=== PATIENT | male | born 1970 | race American Indian/Alaskan Native ===

== ENCOUNTER 2022-01-20 15:04 | Emergency (ER) | payer OTHER ==
[2022-01-20 18:01] VITALS: BP 151/78
[2022-01-20 23:47] LABS: Basophils % (Auto) 0.7 % (0.0-1.8); Eosinophils # (Auto) 0.2 K/mm3 (0.0-0.4); Eosinophils % (Auto) 3.7 % (0.0-4.3); Hematocrit 41.8 % (35.5-45.6); Hemoglobin 14.4 gm/dl (11.8-15.2); Lymphocytes # (Auto) 1.6 K/mm3 (1.2-5.4); Lymphocytes % (Auto) 29.8 % (13.4-35.0); Mean Corpuscular HGB Conc 34 % (32-34); Mean Corpuscular Volume 80 fl (84-94); Monocytes # (Auto) 0.5 K/mm3 (0.0-0.8); Monocytes % (Auto) 8.8 % (0.0-7.3); Platelet Count 217 K/mm3 (140-440); Red Blood Count 5.26 M/mm3 (3.65-5.03); Red Cell Distribution Width 15.3 % (13.2-15.2)
[2022-01-21 00:09] LABS: Alanine Aminotransferase 21 units/L (7-56); Albumin 4.2 g/dL (3.9-5); BUN/Creatinine Ratio 17; Blood Urea Nitrogen 20 mg/dL (9-20); Hemolysis Index 49
--- NOTE | 2022-01-21 01:27 | Cat Scan Report ---
CTA CHEST WITH IV CONTRAST INDICATION: LEFT LATERAL CHEST WALL PAIN, H/O PE. Dyspnea TECHNIQUE: Axial CT images were obtained through the chest after injection of 100 mL Omnipaque 350 IV contrast. 3 plane MIP reconstructions were produced. All CT scans at this location are performed using CT dose reduction for ALARA by means of automated exposure control. COMPARISON: None available. FINDINGS: PULMONARY ARTERIES: No pulmonary emboli. AORTA AND ARTERIES: No acute abnormality. MEDIASTINUM: No mass, lymphadenopathy or other significant abnormality. The heart is normal in size w ithout a pericardial effusion. The trachea and main bronchi are patent and normal in caliber. LUNGS: No suspicious consolidation, nodule or mass. No pneumothorax or pleural effusion. ADDITIONAL FINDINGS: None. UPPER ABDOMEN: No acute findings. BONES: No significant osseous abnormality. IMPRESSION: 1. No CT evidence for pulmonary embolism. 2. No acute findings. Signer Name: Eder Gates MD Signed: 01/21/2022 1:23 AM Workstation Name: [id number]
--- NOTE | 2022-01-21 01:39 | Emergency Department Report ---
ED General Adult HPI - General Chief complaint: Back Pain/Injury Stated complaint: PAIN IN LEFT BACK Source: patient Mode of arrival: Ambulatory Limitations: No Limitations - History of Present Illness Initial comments: Patient is a 51-year-old -[place]ron[place] male with history of PE and who is currently not taking any anticoagulants who presents to the ED with complaint of acute persistent nontraumatic left lateral chest wall and mid posterior thoracic pain for the last 2 days. Patient states that the pain is similar to what he felt when he was diagnosed with pulmonary embolism 8 years ago. Patient states that she just returned from a trip to [facility] about 5 weeks ago. Patient states that the pain is worse with any movement or palpation of the left lateral chest wall or mid posterior thoracic area. Patient denies shortness of breath, diaphoresis, nausea and vomiting, neck pain, traumatic injury, heavy lifting, cough, chest pain, change in vision, headache, numbness and tingling or weakness of upper and lower extremities bilaterally. MD Complaint: Left lateral chest wall and mid posterior thoracic pain -: Sudden, days(s) (2) Location: chest (Left lateral chest wall), back (Left-sided mid posterior thoracic pain) Radiation: non-radiation Severity scale (0 -10): 8 Quality: aching, sharp Consistency: constant Improves with: none Worsens with: movement Associated Symptoms: chest pain (Left lateral chest wall pain). denies: denies other symptoms, confusion, cough, diaphoresis, fever/chills, headaches, malaise, nausea/vomiting, rash, seizure, shortness of breath, syncope, weakness Treatments Prior to Arrival: none - Related Data Previous Rx's Medication Instructions Recorded Last Taken Type Baclofen 20 mg PO Q12H PRN #20 tab 01/21/22 Unknown Rx Naproxen 500 mg PO Q12H PRN #30 tab 01/21/22 Unknown Rx Allergies Allergy/AdvReac Type Severity Reaction Status Date / Time No Known Allergies Allergy Unverified 01/20/22 17:58 ED Review of Systems ROS: Stated complaint: PAIN IN LEFT BACK Other details as noted in HPI Constitutional: denies: chills, fever Eyes: denies: eye pain, eye discharge, vision change ENT: denies: ear pain, throat pain Respiratory: denies: cough, shortness of breath, wheezing Cardiovascular: chest pain (Left lateral chest wall pain). denies: palpitations Endocrine: no symptoms reported Gastrointestinal: denies: abdominal pain, nausea, diarrhea Genitourinary: denies: urgency, dysuria Musculoskeletal: back pain (Left sided mid posterior thoracic pain). denies: joint swelling, arthralgia Skin: denies: rash, lesions Neurological: denies: headache, weakness, paresthesias Psychiatric: denies: anxiety, depression Hematological/Lymphatic: denies: easy bleeding, easy bruising ED Past Medical Hx - Past Medical History Hx Pulmonary Embolism: Yes (8 years ago) - Medications Home Medications: Home Medications Medication Instructions Recorded Confirmed Last Taken Type Baclofen 20 mg PO Q12H PRN #20 tab 01/21/22 Unknown Rx Naproxen 500 mg PO Q12H PRN #30 tab 01/21/22 Unknown Rx ED Physical Exam - General Limitations: No Limitations General appearance: alert, in no apparent distress - Head Head exam: Present: atraumatic, normocephalic, normal inspection - Eye Eye exam: Present: normal appearance, PERRL, EOMI Pupils: Present: normal accommodation - ENT ENT exam: Present: normal exam, normal orophraynx, mucous membranes moist, TM's normal bilaterally, normal external ear exam - Neck Neck exam: Present: normal inspection, full ROM. Absent: tenderness - Respiratory Respiratory exam: Present: normal lung sounds bilaterally, chest wall tenderness (Palpable reproducible left lateral chest wall and mid posterior thoracic tenderness). Absent: respiratory distress, wheezes, rales, rhonchi, accessory muscle use, decreased breath sounds - Cardiovascular Cardiovascular Exam: Present: regular rate, normal rhythm, normal heart sounds. Absent: systolic murmur, diastolic murmur, rubs, gallop - GI/Abdominal GI/Abdominal exam: Present: soft, normal bowel sounds. Absent: tenderness, guarding, rebound, hyperactive bowel sounds, hypoactive bowel sounds, organomegaly - Extremities Exam Extremities exam: Present: normal inspection, full ROM, normal capillary refill. Absent: tenderness - Back Exam Back exam: Present: normal inspection, full ROM, tenderness (Palpable left sided mid posterior thoracic tenderness), muscle spasm, paraspinal tenderness. Absent: CVA tenderness (R), CVA tenderness (L), vertebral tenderness - Neurological Exam Neurological exam: Present: alert, oriented X3, CN II-XII intact, normal gait, reflexes normal - Psychiatric Psychiatric exam: Present: normal affect, normal mood - Skin Skin exam: Present: warm, dry, intact, normal color. Absent: rash ED Course Vital Signs 01/20/22 17:59 Temperature 98.1 F Pulse Rate 80 Respiratory 18 Rate Blood Pressure 151/78 [Right] O2 Sat by Pulse 97 Oximetry ED Medical Decision Making - Lab Data Result diagrams: 01/20/22 23:34 01/20/22 23:34 - Radiology Data Radiology results: report reviewed, image reviewed [place] [id number] Cat Scan Report Signed Patient: TOMY BLUE MR#: [id number] : 1970 Acct:[id number] Age/Sex: 51 / M ADM Date: 01/20/22 Loc: ED Attending Dr: Ordering Physician: MONA DAN Date of Service: 01/20/22 Procedure(s): CT angio chest Accession Number(s): [id number] cc: MONA DAN CTA CHEST WITH IV CONTRAST INDICATION: LEFT LATERAL CHEST WALL PAIN, H/O PE. Dyspnea TECHNIQUE: Axial CT images were obtained through the chest after injection of 100 mL Omnipaque 350 IV contrast. 3 plane MIP reconstructions were produced. All CT scans at this location are performed using CT dose reduction for ALARA by means of automated exposure control. COMPARISON: None available. FINDINGS: PULMONARY ARTERIES: No pulmonary emboli. AORTA AND ARTERIES: No acute abnormality. MEDIASTINUM: No mass, lymphadenopathy or other significant abnormality. The heart is normal in size without a pericardial effusion. The trachea and main bronchi are patent and normal in caliber. LUNGS: No suspicious consolidation, nodule or mass. No pneumothorax or pleural effusion. ADDITIONAL FINDINGS: None. UPPER ABDOMEN: No acute findings. BONES: No significant osseous abnormality. IMPRESSION: 1. No CT evidence for pulmonary embolism. 2. No acute findings. Signer Name: Eder Gates MD Signed: 01/21/2022 1:23 AM Workstation Name: [id number] Transcribed By: SHREE Dictated By: Eder Gates MD Electronically Authenticated By: Eder Gates MD Signed Date/Time: 01/21/22122 DD/ 9 TD/TT: - Medical Decision Making This is a 51-year-old -Micron[place] male with history of PE and who is currently not taking any anticoagulants who presents to the ED with complaint of acute persistent nontraumatic left lateral chest wall and mid posterior thoracic pain for the last 2 days. Patient states that the pain is similar to what he felt when he was diagnosed with pulmonary embolism 8 years ago. Patient states that she just returned from a trip to [facility] about 5 weeks ago. Giovanna ent states that the pain is worse with any movement or palpation of the left lateral chest wall or mid posterior thoracic area. In the ED, patient is alert and oriented x3 and is not in any distress. Lab test results were reviewed and are all nonactionable except for elevated D-dimer of 328.23. Patient was treated for pain in the ED. Chest CTA showed no evidence of pulmonary embolism or any acute cardiopulmonary abnormalities. Patient was therefore discharged home on pain medications and advised to follow-up with his primary care physician in 5 to 7 days for reevaluation or return to the ED immediately if symptoms get worse. - Differential Diagnosis PE; muscle strain; costochondritis; muscle spasm; pneumonia; ACS Critical care attestation.: If time is entered above; I have spent that time in minutes in the direct care of this critically ill patient, excluding procedure time. ED Disposition Clinical Impression: Strain of muscle and tendon of back wall of thorax, initial encounter Muscle strain of chest wall Qualifiers: Encounter type: initial encounter Qualified Code(s): S29.011A - Strain of muscle and tendon of front wall of thorax, initial encounter Disposition: HOME / SELF CARE / HOMELESS Is pt being admited?: No Does the pt Need Aspirin: No Condition: Stable Instructions: Muscle Strain, [id number], Thoracic Strain Rehab-SportsMed Additional Instructions: All lab test results were reviewed and are all nonactionable. Chest CTA showed no evidence of pulmonary embolism. Your symptoms are therefore likely musculoskeletal muscle strain. Therefore take medications with food, drink plenty of fluids and follow up with your Primary Care Physician in 5-7 days for reevaluation,. Return to the ED immediately if symptoms get worse. Prescriptions: Baclofen 20 mg PO Q12H PRN #20 tab PRN Reason: MUSCLE SPASM Naproxen 500 mg PO Q12H PRN #30 tab PRN Reason: Pain , Severe (7-10) Referrals: ERIK GILES MD [Primary Care Provider] - 3-5 Days Forms: Work/School Release Form(ED) Time of Disposition: 01:39 Print Language: MALAGASY
--- NOTE | 2022-01-23 19:53 | Electrocardiograph Report ---
[facility] Test Date: 2022-01-20 Test Time: 23:23:37 Pat Name: TOMY BLUE Department: Room: Gender: M [employer]ist: KOJO : 1970 Requested By: BOSTON FAGAN Order Number: [id number] Reading MD: Karen Elizabeth Measurements Intervals [place] Rate: 56 P: 96 WV: 188 QRS: 59 QRSD: 101 T: 51 QT: 395 QTc: 381 Interpretive Statements Sinus rhythm Normal ECG No previous ECG available for comparison Electronically Signed On 01-23-2022 19:53:28 EDT by Karen Elizabeth
== END 2022-01-21 01:55 | disposition home or self-care (01) ==
LOC: ED 15:04
DX: S29.012A Strain of muscle and tendon of back wall of thorax, initial encounter (principal); S29.011A Strain of muscle and tendon of front wall of thorax, initial encounter; X58.XXXA Exposure to other specified factors, initial encounter; Y93.89 Activity, other specified; Y92.89 Other specified places as the place of occurrence of the external cause; Y99.8 Other external cause status
CPT/HCPCS: 36415; 71275; 80053; 84484; 85025; 85379; 93005; 99284; Q9967